=== PATIENT | male | born 1985 | race Caucasian/White ===

== ENCOUNTER 2021-01-23 20:52 | Emergency (ER) | payer OTHER ==
--- NOTE | 2021-01-23 21:49 | EDM.PDOC ---
ED HPI GENERAL MEDICAL PROBLEM - General Chief Complaint: Lower Extremity Injury/Pain Stated Complaint: LFT ANKLE HURT Time Seen by Provider: 01/23/21 20:59 - History of Present Illness INITIAL COMMENTS - FREE TEXT/NARRATIVE: History of present illness: This healthy 35-year-old male was playing softball when he made a turn and suddenly by changing direction he felt a snap in his left leg. He has pain and tenderness in the left calf since and difficulty with plantar flexion. [] Review of systems: As per history of present illness and below otherwise all systems reviewed and negative. Past medical history: As per history of present illness and as reviewed below otherwise noncontributory. Surgical history: As per history of present illness and as reviewed below otherwise noncontributory. Social history: No reported history of drug or alcohol abuse. Family history: As per history of present illness and as reviewed below otherwise noncontributory. Physical exam: Constitutional - well developed, well-nourished and in no acute distress HEENT - normocephalic, no evidence of trauma - external nose and mouth normal - no mass in neck and no JVD - mucosae moist EYES - full EOM, PERRL, no icterus - no evidence of inflammation, injection, or drainage Respiratory - no respiratory distress, equal bilateral expansion Musculoskeletal tenderness in the left calf. Patient has no palpable Achilles tendon in the posterior left ankle. There is a firm palpable well-defined Achilles tendon on the right. No gross deformity of long bones or joints - no tenderness, swelling or edema Neurologic - Alert and oriented times four - CN II-XII grossly intact - motor sensory and coordination symmetrically normal. Patient has Psychiatric - appropriate mood and affect with normal thought content Hematologic - No petechiae or purpura - mucosa appropriate color and sclera not pale - normal nail bed color and refill Integument - no rash or evidence of trauma - normal turgor Diagnostics: [] Therapeutics: [] Impression: [] Plan: [] Definitive disposition and diagnosis as appropriate pending reevaluation and review of above. Left Foot Pain Score (Numeric/FACES): 7 - Related Data Allergies Allergy/AdvReac Type Severity Reaction Status Date / Time Sulfa (Sulfonamide Allergy Rash Verified 01/23/21 21:15 Antibiotics) Home Meds: Home Meds . [No Known Home Meds] 01/23/21 [History] Past Medical History - Infectious Disease History Infectious Disease History: Reports: Chicken Pox, Novel Coronavirus Social & Family History - Tobacco Use Tobacco Use Status *Q: Never Tobacco User Second Hand Smoke Exposure: No - Caffeine Use Caffeine Use: Reports: Coffee - Recreational Drug Use Recreational Drug Use: No Review of Systems - Review of Systems Review Of Systems: Comprehensive ROS is negative, except as noted in HPI. ED EXAM, GENERAL - Physical Exam Exam: See Below Free Text/Narrative:: My physical exam is in the HPI Course - Vital Signs Text/Narrative:: Discussed with Dr. Shaw and he wants 1 view of the ankle lateral. He will see the patient tomorrow or have his nurse practitioner do the physical exam and preparation for surgery the next day. Last Recorded V/S: Last Vital Signs Temp 36.9 C 01/23/21 21:16 Pulse 97 01/23/21 21:16 Resp 16 01/23/21 21:16 BP 154/96 H 01/23/21 21:16 Pulse Ox 97 01/23/21 21:16 - Orders/Labs/Meds Orders: Active Orders 24 hr Category Date Time Status DME for Discharge [COMM] Stat Oth 01/23/21 21:40 Ordered Departure - Departure Time of Disposition: 22:00 Disposition: Home, Self-Care 01 Condition: Good Clinical Impression: Achilles rupture, left, Rupture of Achilles tendon - Discharge Information Instructions: Achilles Tendon Tear Referrals: PCP,None [Primary Care Provider] - Additional Instructions: Dr. Shaw wants you to call the Ortho clinic tomorrow after 8 AM and they were nightly and he will be seen tomorrow and probably operated on the next day. [facility] Professional Building [address] [place] [address], [address] [place] [address] The following information is given to patients seen in the emergency department who are being discharged to home. This information is to outline your options for follow-up care. We provide all patients seen in our emergency department with a follow-up referral. The need for follow-up, as well as the timing and circumstances, are variable depending upon the specifics of your emergency department visit. If you don't have a primary care physician on staff, we will provide you with a referral. We always advise you to contact your personal physician following an emergency department visit to inform them of the circumstance of the visit and for follow-up with them and/or the need for any referrals to a consulting specialist. The emergency department will also refer you to a specialist when appropriate. This referral assures that you have the opportunity for follow-up care with a specialist. All of these measure are taken in an effort to provide you with optimal care, which includes your follow-up. Under all circumstances we always encourage you to contact your private physician who remains a resource for coordinating your care. When calling for follow-up care, please make the office aware that this follow-up is from your recent emergency room visit. If for any reason you are refused follow-up, please contact the [facility] Emergency Department at and asked to speak to the emergency department charge nurse. Sepsis Event Note (ED) - Evaluation Sepsis Screening Result: No Definite Risk - Focused Exam Vital Signs: Vital Signs Temp Pulse Resp BP Pulse Ox 01/23/21 21:16 36.9 C 97 16 154/96 H 97 - My Orders Last 24 Hours: My Active Orders 01/23/21 21:40 DME for Discharge [COMM] Stat - Assessment/Plan Last 24 Hours: My Active Orders 01/23/21 21:40 DME for Discharge [COMM] Stat
--- NOTE | 2021-01-23 22:18 | CR ---
For Patients: As a result of the Century Cures Act, medical imaging exams and procedure reports are released immediately into your electronic medical record. You may view this report before your referring provider. If you have questions, please contact your health care provider. INDICATION: Achilles tear. TECHNIQUE: Two views of the left ankle. COMPARISON: None. IMPRESSION: No acute fracture is identified. There are a few well corticated ossicles seen adjacent to both the medial and lateral malleoli, likely related to remote trauma. Ankle mortise is symmetric. Soft tissue structures, including the Achilles tendon, are not optimally evaluated radiographically. If there is clinical concern for Achilles tear, this could be further assessed with either a nonemergent/outpatient ultrasound or MRI. Dictated by Julio Cesar Love MD @ 01/23/2021 10:16:56 PM Dictated by: Julio Cesar Love MD @ 01/23/2021 22:17:12 (Electronically Signed)
== END 2021-01-23 22:29 | disposition home or self-care (01) ==
LOC: MW.ED 20:52
DX: S86.012A Strain of left Achilles tendon, initial encounter (principal); Z86.16 Personal history of COVID-19; Z88.2 Allergy status to sulfonamides; X58.XXXA Exposure to other specified factors, initial encounter; Y93.64 Activity, baseball
CPT/HCPCS: 73600-26-LT; 73600-LT; 99283-25